=== PATIENT | male | born 1990 | race Caucasian/White ===

== ENCOUNTER 2017-05-14 13:11 | Emergency (ER) | payer BC ==
[~2017-05-14] VITALS: Ht 180.3 cm; Wt 80.0 kg
[2017-05-14 13:38] VITALS: BP 128/75
[2017-05-14] MEDS ORDERED: proparacaine 0.5% ophthalmic drops 15ml EACHEYE ONE (14:05)
[2017-05-14] MEDS ORDERED: Cipro HC otic suspension 10ML bottle LEFT EAR SCH (14:46)
[2017-05-14] MEDS ORDERED: fluorometholone 0.1% ophthalmic suspension 5ml bottle LEFTEYE SCH (14:47)
[2017-05-14] MEDS: benoxinate/fluorescein ophth drops 5ml bottle EACHEYE ONE (15:31)
[2017-05-14] MEDS ORDERED: ciprofloxacin 0.3% 5ml ophthalmic solution EACHEYE SCH (16:00)
== END 2017-05-14 15:34 | disposition home or self-care (01) ==
LOC: ER 13:12
DX: H10.32 Unspecified acute conjunctivitis, left eye (principal)
CPT/HCPCS: 99283